=== PATIENT | male | born 1940 | race Caucasian/White ===

== ENCOUNTER → 2016-08-13 | Outpatient (CLI) | payer MEDICARE ==
[~2016-08-13] MED LIST: ASPIR-LOW81 MG PO; HYDROCHLOROTHIA25 MG PO; KLOR-CON M1010 MEQ PO; LABETALOL HCL300 MG PO; LASIX40 MG PO; LISINOPRIL40 MG PO; LOPRESSOR 25 MG25 MG PO
[2016-08-13 12:42] LABS: BUN/CREATININE RATIO 21 (0-10)
== END ==
LOC: LAB 11:11
PROVIDERS: Internal Medicine Cardiovascular Disease
DX: E11.9 Type 2 diabetes mellitus without complications (principal); I10 Essential (primary) hypertension; E78.5 Hyperlipidemia, unspecified
CPT/HCPCS: 36415; 80053; 80061; 83036

== ENCOUNTER 2020-12-07 15:22 | Inpatient (IN) | payer MEDICARE ==
[~2020-12-07] VITALS: Ht 177.8 cm; Wt 100.7 kg
[~2020-12-07 15:22] MED LIST changes: +ASPIRIN EC81 MG PO; +ATORVASTATIN CA20 MG PO; +BACTRIM DS TAB1 EACH PO; +CLEOCIN HCL300 MG PO; +COUMADIN3 MG PO; +COUMADIN6 MG PO; +DOK100 MG PO; +ELIQUIS 5 MG TAB5 MG PO; +FERATE240 MG PO; +FUROSEMIDE10 MG/1 M1 PO; +FUROSEMIDE40 MG PO; +GLUCOPHAGE 500500 MG PO; +HYDRALAZINE HCL25 MG PO; +HYDRALAZINE HCL50 MG PO; +LASIX 40 MG TAB40 MG PO; +LASIX20 MG PO; +METOPROLOL SUCC25 MG PO; +NYSTOP60 GM TP; +PRINIVIL20 MG PO
[2020-12-07 16:22] LABS: HEMOGLOBIN 9.3 gm/dl (14.0-17.5); RED BLOOD COUNT 4.38 M/UL (4.20-5.50); WHITE BLOOD COUNT 13.9 K/UL (4.5-11.0)
[2020-12-07 16:50] LABS: BUN/CREATININE RATIO 21 (0-10)
[2020-12-08 04:22] LABS: HEMOGLOBIN 9.2 gm/dl (14.0-17.5); RED BLOOD COUNT 4.34 M/UL (4.20-5.50); WHITE BLOOD COUNT 14.6 K/UL (4.5-11.0)
[2020-12-08] MEDS ORDERED: LASIX40 MG PO (15:31)
[2020-12-08] MEDS ORDERED: POTASSIUM CHLO20 ME2 PO (15:32)
[2020-12-08] MEDS ORDERED: CLINDAMYCIN HC300 MG PO (15:32)
[2020-12-08] MEDS ORDERED: VITAMIN B-6100 MG PO (15:34)
[2020-12-08] MEDS ORDERED: ZOFRAN4 MG PO (18:18)
[2020-12-09 02:30] LABS: HEMOGLOBIN 9.7 gm/dl (14.0-17.5); RED BLOOD COUNT 4.55 M/UL (4.20-5.50)
[2020-12-09 02:31] LABS: WHITE BLOOD COUNT 10.1 K/UL (4.5-11.0)
[2020-12-12] MEDS ORDERED: LEVOFLOXACIN750 MG PO (09:43)
== END 2020-12-12 12:22 | disposition home health service (06) | DRG 872 ==
LOC: ER1 15:22 → CDU 21:28 → M/S 12-08 14:31
PROVIDERS: Internal Medicine; Nurse Practitioner; ADMIT Internal Medicine
DX: A41.9 Sepsis, unspecified organism (principal); L03.116 Cellulitis of left lower limb; I48.20 Chronic atrial fibrillation, unspecified; I13.0 Hypertensive heart and chronic kidney disease with heart failure and stage 1 through stage 4 chronic kidney disease, or unspecified chronic kidney disease; N17.9 Acute kidney failure, unspecified; I50.32 Chronic diastolic (congestive) heart failure; J96.11 Chronic respiratory failure with hypoxia; L03.115 Cellulitis of right lower limb; Z20.822 Contact with and (suspected) exposure to COVID-19; I87.2 Venous insufficiency (chronic) (peripheral); N18.30 Chronic kidney disease, stage 3 unspecified; I25.10 Atherosclerotic heart disease of native coronary artery without angina pectoris; J44.9 Chronic obstructive pulmonary disease, unspecified; F17.210 Nicotine dependence, cigarettes, uncomplicated; E11.22 Type 2 diabetes mellitus with diabetic chronic kidney disease; E78.5 Hyperlipidemia, unspecified; Z98.49 Cataract extraction status, unspecified eye; Z95.1 Presence of aortocoronary bypass graft; Z79.82 Long term (current) use of aspirin; Z79.899 Other long term (current) drug therapy; Z88.0 Allergy status to penicillin
CPT/HCPCS: 36415; 71045; 80048; 80053; 80202; 82550; 82553; 82570; 82962; 83605; 83874; 84300; 84484; 85025; 85610; 85652; 85730; 86140; 87040; 87070; 87077; 87186; 87205; 89050; 93005; 96374; 96375; 99284; G0378; J1650; J2185; J2270; J3370; J7070; U0002

== ENCOUNTER → 2020-12-15 | Outpatient (CLI) | payer MEDICARE ==
[~2020-12-15] MED LIST changes: +CLINDAMYCIN HC300 MG PO; +LEVOFLOXACIN750 MG PO; +POTASSIUM CHLO20 ME2 PO; +VITAMIN B-6100 MG PO; +ZOFRAN4 MG PO
== END ==
LOC: WCC 09:57
DX: L03.116 Cellulitis of left lower limb (principal); L03.115 Cellulitis of right lower limb; I48.20 Chronic atrial fibrillation, unspecified; I13.0 Hypertensive heart and chronic kidney disease with heart failure and stage 1 through stage 4 chronic kidney disease, or unspecified chronic kidney disease; N18.30 Chronic kidney disease, stage 3 unspecified; I50.9 Heart failure, unspecified; E66.01 Morbid (severe) obesity due to excess calories; I25.10 Atherosclerotic heart disease of native coronary artery without angina pectoris
CPT/HCPCS: 97597; 97598

== ENCOUNTER → 2020-12-19 | Outpatient (CLI) | payer MEDICARE | LOC: WCC 15:13 | DX: E11.622 Type 2 diabetes mellitus with other skin ulcer (principal); L97.219 Non-pressure chronic ulcer of right calf with unspecified severity; J44.9 Chronic obstructive pulmonary disease, unspecified; E11.36 Type 2 diabetes mellitus with diabetic cataract; H26.9 Unspecified cataract; I11.0 Hypertensive heart disease with heart failure; I50.9 Heart failure, unspecified; E11.40 Type 2 diabetes mellitus with diabetic neuropathy, unspecified; I25.10 Atherosclerotic heart disease of native coronary artery without angina pectoris; Z88.0 Allergy status to penicillin; Z79.82 Long term (current) use of aspirin; Z79.899 Other long term (current) drug therapy ==

== ENCOUNTER → 2020-12-22 | Outpatient (CLI) | payer MEDICARE | LOC: OPSV 09:39 | DX: L03.116 Cellulitis of left lower limb (principal); L03.115 Cellulitis of right lower limb; R60.1 Generalized edema | CPT/HCPCS: G0463 ==

== ENCOUNTER → 2020-12-29 | Outpatient (CLI) | payer MEDICARE | LOC: WCC 08:00 | DX: E11.622 Type 2 diabetes mellitus with other skin ulcer (principal); L97.212 Non-pressure chronic ulcer of right calf with fat layer exposed; L03.116 Cellulitis of left lower limb; L03.115 Cellulitis of right lower limb; I48.20 Chronic atrial fibrillation, unspecified; I13.0 Hypertensive heart and chronic kidney disease with heart failure and stage 1 through stage 4 chronic kidney disease, or unspecified chronic kidney disease; E11.22 Type 2 diabetes mellitus with diabetic chronic kidney disease; N18.30 Chronic kidney disease, stage 3 unspecified; I50.9 Heart failure, unspecified; I25.10 Atherosclerotic heart disease of native coronary artery without angina pectoris; E66.01 Morbid (severe) obesity due to excess calories; R60.1 Generalized edema; F17.200 Nicotine dependence, unspecified, uncomplicated; Z68.32 Body mass index [BMI] 32.0-32.9, adult; Z88.0 Allergy status to penicillin; Z79.82 Long term (current) use of aspirin; Z79.2 Long term (current) use of antibiotics; Z79.899 Other long term (current) drug therapy | CPT/HCPCS: 87070; 87077; 87186; 87205 ==

== ENCOUNTER → 2021-01-02 | Outpatient (CLI) | payer MEDICARE | LOC: WCC 09:06 | DX: L97.912 Non-pressure chronic ulcer of unspecified part of right lower leg with fat layer exposed (principal) | CPT/HCPCS: G0463 ==

== ENCOUNTER → 2021-01-02 | Outpatient (CLI) | payer MEDICARE | LOC: LAB 11:59 | PROVIDERS: Nurse Practitioner Family | DX: L03.116 Cellulitis of left lower limb (principal); L03.115 Cellulitis of right lower limb; I48.20 Chronic atrial fibrillation, unspecified; I13.0 Hypertensive heart and chronic kidney disease with heart failure and stage 1 through stage 4 chronic kidney disease, or unspecified chronic kidney disease; E11.22 Type 2 diabetes mellitus with diabetic chronic kidney disease; N18.30 Chronic kidney disease, stage 3 unspecified; I50.9 Heart failure, unspecified; I25.10 Atherosclerotic heart disease of native coronary artery without angina pectoris; E66.01 Morbid (severe) obesity due to excess calories; E11.622 Type 2 diabetes mellitus with other skin ulcer; R60.1 Generalized edema; Z72.0 Tobacco use | CPT/HCPCS: 36415; 80053 ==

== ENCOUNTER → 2021-02-27 | Outpatient (CLI) | payer MEDICARE, OTHER ==
[2021-02-27 07:43] LABS: BUN/CREATININE RATIO 19 (0-10)
== END ==
LOC: OPSV 06:20
PROVIDERS: Physician Assistant Surgical
DX: L03.116 Cellulitis of left lower limb (principal); L03.115 Cellulitis of right lower limb; L02.419 Cutaneous abscess of limb, unspecified; J44.9 Chronic obstructive pulmonary disease, unspecified; I10 Essential (primary) hypertension; E78.00 Pure hypercholesterolemia, unspecified; E03.9 Hypothyroidism, unspecified; Z88.0 Allergy status to penicillin
CPT/HCPCS: 36415; 71045; 80053

== ENCOUNTER → 2021-02-28 | Outpatient (CLI) | payer MEDICARE | LOC: KOH-I 02-27 16:00 | DX: F17.210 Nicotine dependence, cigarettes, uncomplicated (principal); R91.8 Other nonspecific abnormal finding of lung field | CPT/HCPCS: 71271 ==

== ENCOUNTER → 2021-03-13 | Outpatient (CLI) | payer MEDICARE | LOC: LBRF 15:45 | PROVIDERS: Student in an Organized Health Care Education/Training Program | DX: L03.119 Cellulitis of unspecified part of limb (principal); Z79.2 Long term (current) use of antibiotics | CPT/HCPCS: 80048; 80170 ==

== ENCOUNTER → 2021-05-09 | Outpatient (CLI) | payer MEDICARE | LOC: KOH-I 05-08 13:00 | DX: E04.1 Nontoxic single thyroid nodule (principal); E04.2 Nontoxic multinodular goiter | CPT/HCPCS: 76536 ==